=== PATIENT | male | born 1950 | race Caucasian/White ===

== ENCOUNTER 2020-02-26 21:22 | Emergency (ER) | payer MEDICARE ==
[~2020-02-26] VITALS: Ht 182.9 cm; Wt 107.0 kg
[2020-02-26 21:24] VITALS: BP 140/81
[2020-02-26] MEDS ORDERED: KETOROLAC 60MG/2ML VIAL IM ONE (22:45)
== END 2020-02-26 23:39 | disposition home or self-care (01) ==
LOC: ER 21:22
DX: S16.1XXA Strain of muscle, fascia and tendon at neck level, initial encounter (principal); S39.012A Strain of muscle, fascia and tendon of lower back, initial encounter; V49.49XA Driver injured in collision with other motor vehicles in traffic accident, initial encounter; Y93.89 Activity, other specified; Y92.89 Other specified places as the place of occurrence of the external cause; Y99.8 Other external cause status
CPT/HCPCS: 96372; 99283; J1885